=== PATIENT | female | born 2005 | race Hispanic/Latino ===

== ENCOUNTER 2025-09-04 19:35 | Emergency (ER) | payer SELFPAY ==
[2025-09-04] MEDS ORDERED: Metoclopramide HCl 10 MG (2 mL) VIAL ONE (20:30)
[2025-09-04] MEDS ORDERED: Ketorolac Tromethamine 30 MG (1 mL) VIAL ONE (20:30)
== END 2025-09-04 22:19 | disposition home or self-care (01) ==
LOC: CSHERS 19:35
DX: G43.909 Migraine, unspecified, not intractable, without status migrainosus (principal)
CPT/HCPCS: 96374; 96375; J1885; J2765